=== PATIENT | male | born 1980 | race American Indian/Alaskan Native ===

== ENCOUNTER 2022-05-12 16:38 | Emergency (ER) | payer SELFPAY ==
--- NOTE | 2022-05-12 18:47 | Emergency Department Report ---
- General Chief complaint: Skin/Abscess/Foreign Body Stated complaint: ABCESS ON BACK Time Seen by Provider: 05/12/22 17:55 Source: patient Mode of arrival: Ambulatory Limitations: No Limitations - History of Present Illness Initial comments: 41-year-old black male with no past medical history presents to the emergency department for evaluation of abscess to the back. He states that he has had a knot on his back for the past couple of weeks that has started to become painful. He states that pain is 7 out of 10. He denies fever and drainage. complaint: abscess/boil -: Gradual, week(s) (2) Location: back Severity: moderate Severity scale (0 -10): 7 Quality: aching Consistency: constant Associated symptoms: denies other symptoms Treatments Prior to Arrival: none - Related Data Previous Rx's Medication Instructions Recorded Last Taken Type Naproxen [EC-Naprosyn] 500 mg PO BID PRN #14 tab 05/12/22 Unknown Rx Sulfamethoxazole/Trimethoprim 1 each PO BID 7 Days #14 tab 05/12/22 Unknown Rx [Bactrim DS TAB] Abscess Boil HPI - HPI Chief Complaint: Skin/Abscess/Foreign Body Stated Complaint: ABCESS ON BACK Time Seen by Provider: 05/12/22 17:55 Duration: >1 Week Location: Back History: Yes Pain, No Fever, No Purulent Drainage, No Numbness, No Foreign Body, No Previous History, No Insect Bite Home Medications: Previous Rx's Medication Instructions Recorded Last Taken Type Naproxen [EC-Naprosyn] 500 mg PO BID PRN #14 tab 05/12/22 Unknown Rx Sulfamethoxazole/Trimethoprim 1 each PO BID 7 Days #14 tab 05/12/22 Unknown Rx [Bactrim DS TAB] ED Review of Systems ROS: Stated complaint: ABCESS ON BACK Other details as noted in HPI Comment: All other systems reviewed and negative Constitutional: denies: chills, fever, malaise, weakness Respiratory: denies: shortness of breath Cardiovascular: denies: chest pain Gastrointestinal: denies: abdominal pain, nausea, vomiting Musculoskeletal: back pain Neurological: denies: headache ED Past Medical Hx - Surgical History Additional Surgical History: partial thyroidectomy - Social History Smoking Status: Never Smoker - Medications Home Medications: Home Medications Medication Instructions Recorded Confirmed Last Taken Type Naproxen [EC-Naprosyn] 500 mg PO BID PRN #14 tab 05/12/22 Unknown Rx Sulfamethoxazole/Trimethoprim 1 each PO BID 7 Days #14 tab 05/12/22 Unknown Rx [Bactrim DS TAB] ED Physical Exam - General Limitations: No Limitations General appearance: alert, in no apparent distress - Head Head exam: Present: atraumatic, normocephalic - Eye Eye exam: Present: normal appearance. Absent: conjunctival injection - Neck Neck exam: Present: normal inspection. Absent: lymphadenopathy - Respiratory Respiratory exam: Absent: respiratory distress - Cardiovascular Cardiovascular Exam: Present: bradycardia - GI/Abdominal GI/Abdominal exam: Absent: distended, tenderness - Extremities Exam Extremities exam: Present: normal inspection - Back Exam Back exam: Present: tenderness. Absent: normal inspection (Abscess 4 cm in diameter noted to right upper back. No erythema noted minimal edema noted no drainage noted tender to touch but not fluctuant) - Expanded Back Exam Expanded 1 - Abscessed area - Neurological Exam Neurological exam: Present: alert, oriented X3 - Psychiatric Psychiatric exam: Present: normal affect, normal mood - Skin Skin exam: Present: warm, dry, normal color ED Course Vital Signs 05/12/22 16:42 Temperature 98.3 F Pulse Rate 58 L Respiratory 18 Rate Blood Pressure 158/96 O2 Sat by Pulse 99 Oximetry ED Medical Decision Making - Medical Decision Making 41-year-old black male with no past medical history presents to the emergency department for evaluation of abscess to the back. He states that he has had a knot on his back for the past couple of weeks that has started to become painful. He states that pain is 7 out of 10. He denies fever and drainage Exam consistent with abscess to right upper back. Abscess not fluctuant so no I&D required. Patient will be discharged home on Bactrim and naproxen and advised to take medications as prescribed and follow-up with his primary care provider if no improvement or worsening symptoms. He is advised to return to the emergency department as needed. He verbalizes understanding of and agreement with plan of care. Critical care attestation.: If time is entered above; I have spent that time in minutes in the direct care of this critically ill patient, excluding procedure time. ED Disposition Clinical Impression: Back abscess Disposition: 01 HOME / SELF CARE / HOMELESS Is pt being admited?: No Does the pt Need Aspirin: No Condition: Stable Instructions: Skin Abscess, [id number] Additional Instructions: Take medications as prescribed. Follow-up with your primary care provider if no improvement or worsening symptoms. Return to the emergency department as needed. Prescriptions: Sulfamethoxazole/Trimethoprim [Bactrim DS TAB] 1 each PO BID 7 Days #14 tab Naproxen [EC-Naprosyn] 500 mg PO BID PRN #14 tab PRN Reason: Pain, Moderate (4-6) Referrals: LOREN ORELLANA MD [Staff Physician] - 3-5 Days Time of Disposition: 18:51
[2022-05-12] MEDS ORDERED: KETOROLAC 10 MG TAB PO NR (19:00)
[2022-05-12] MEDS ORDERED: SULFAMETHOXAZOLE/TRIMETHOPRIM 800/160MG DS TAB PO NR (19:00)
[2022-05-12 19:39] VITALS: BP 153/87
== END 2022-05-12 19:47 | disposition home or self-care (01) ==
LOC: ED 16:38
DX: L02.212 Cutaneous abscess of back [any part, except buttock and flank] (principal)
CPT/HCPCS: 99282